=== PATIENT | female | born 1995 | race African-American/Black ===

== ENCOUNTER 2017-07-13 09:29 | Emergency (ER) | payer OTHER, SELFPAY ==
[2017-07-13] MEDS ORDERED: Promethazine HCl 25 MG/ML VIAL ONE (10:02)
[2017-07-13] MEDS ORDERED: diphenhydrAMINE 50 MG/ML VIAL ONE (10:02)
[2017-07-13 10:12] LABS: Hemoglobin 12.7 g/dL (12.0-16.0); Mean Corpuscular HGB CONC 32.9 g/dL (32.0-36.0); Mean Corpuscular Hemoglobin 28.1 pg (27.0-31.0); Mean Corpuscular Volume 85.5 fl (81.0-99.0); Mean Platelet Volume 6.2 fL (7.4-10.4); Platelet Count 297 thou/uL (130-400); RBC Distribution Width 11.4 % (11.5-14.5); Red Blood Cell (RBC) Count 4.52 mill/uL (4.20-5.40); White Blood Cell (WBC) Count 7.7 thou/uL (4.8-10.8)
[2017-07-13 10:22] LABS: ALT (SGPT) 11 U/L (8-55); AST (SGOT) 15 U/L (5-34); Albumin 4.4 g/dL (3.5-5.0); Alkaline Phosphatase 58 U/L (40-150); Anion Gap 14 mmol/L (10-20); BUN (Urea Nitrogen) 13 mg/dL (7.0-18.7); Bilirubin, Total 0.7 mg/dL (0.2-1.2); Calc. Creatinine Clearance 0 mL/min (70-130); Carbon Dioxide 20 mmol/L (22-29); Chloride 110 mmol/L (98-107); Estimated GFR-MDRD Greater than 90; Globulin 3.3 g/dL (2.4-3.5); Glucose 102 mg/dL (70-105); Potassium 3.6 mmol/L (3.5-5.1); Protein, Total 7.7 g/dL (6.0-8.3); Sodium 140 mmol/L (136-145)
[2017-07-13 10:38] LABS: Band 2 % (5-11); Eosinophils 1 % (0-10); Lymphocytes 13 % (21-51); MDiff Complete? YES; Monocytes 3 % (0-10); Neutrophil 79 % (42-75); PLT Morphology Comment Appears Adequate; Reactive Lymphocytes 1 % (0-10); Sickle Cells SLIGHT = 1-5 cells (100X) (None Seen)
[2017-07-13 11:30] LABS: Reticulocyte Count 1.4 % (0.5-1.5)
== END 2017-07-13 11:50 | disposition home or self-care (01) ==
LOC: SCSER 09:29
DX: G43.909 Migraine, unspecified, not intractable, without status migrainosus (principal); N94.6 Dysmenorrhea, unspecified
CPT/HCPCS: 80053; 83021; 85025; 85046; 85652; 85660; 86140; 96365; 96375; J1200; J2550